=== PATIENT | female | born 2000 | race Caucasian/White ===

== ENCOUNTER 2022-01-12 10:07 | Emergency (ER) | payer BC ==
[~2022-01-12] VITALS: Ht 165.1 cm; Wt 48.1 kg
[2022-01-12 10:44] VITALS: BP 104/69
[2022-01-12 10:45] VITALS: BP 96/67
[2022-01-12 10:47] LABS: HEMATOCRIT 38.6 % (37.0-47.0); HEMOGLOBIN 12.4 g/dl (12.0-16.0); MEAN CELL VOLUME 91.5 fL CALC (80.0-100.0); MEAN CORPUSCULAR HGB 29.4 pG CALC (26.0-32.0); MEAN CORPUSCULAR HGB CONC 32.1 g/dL CAL (32.0-36.0); NEUT# 3.08 thou/uL (2.00-7.15); RED BLOOD COUNT 4.22 mill/uL (4.20-5.60); RED CELL DISTRI WIDTH 12.8 % (11.5-15.5)
[2022-01-12 11:00] VITALS: BP 98/64
[2022-01-12 11:02] LABS: ALBUMIN 4.4 g/dL (3.2-5.0); ALKALINE PHOSPHATASE 47 u/l (38-126); ANION GAP 10 (6-22 (CALC)); BILIRUBIN, TOTAL 0.3 mg/dL (0.0-1.4); BUN 9 mg/dL (7-17); BUN/CREATININE RATIO 12 (12-20 (CALC)); CARBON DIOXIDE 27 mmol/l (22-30); CHLORIDE 106 mmol/l (95-108); CREATININE 0.8 mg/dL (0.5-1.0); GFR > 60 ML/MIN (>=60 (CALC)); GFR FOR AFR.AMER. > 60 ML/MIN (>=60 (CALC)); POTASSIUM 4.1 mmol/l (3.5-5.1); SGOT/AST 20 u/l (14-36); SODIUM 139 mmol/l (137-146); TOTAL PROTEIN 7.4 g/dL (6.3-8.2)
[2022-01-12 11:15] VITALS: BP 97/64
[2022-01-12 11:30] VITALS: BP 127/85
[2022-01-12 14:57] VITALS: BP 127/85
== END 2022-01-12 15:10 | disposition home or self-care (01) | DRG 313 ==
LOC: ED 10:07
PROVIDERS: Family Medicine
DX: R07.9 Chest pain, unspecified (principal); I34.1 Nonrheumatic mitral (valve) prolapse; I49.8 Other specified cardiac arrhythmias; F17.290 Nicotine dependence, other tobacco product, uncomplicated
CPT/HCPCS: Q9967